=== PATIENT | female | born 1955 | race Caucasian/White ===

== ENCOUNTER 2017-08-05 14:47 | Emergency (ER) | payer MEDICAID ==
[~2017-08-05] VITALS: Ht 165.1 cm; Wt 65.0 kg
[2017-08-05] MEDS ORDERED: METF850T2 PO (14:56)
[2017-08-05 15:02] LABS: GLUCOSE,POINT OF CARE 311 MG/DL (70-110)
[2017-08-05] MEDS ORDERED: HYDROCODONE/ACETAMINOPHEN 5-325 MG TABLET PO ONE (15:15)
[2017-08-05] MEDS ORDERED: MetFORMIN HCL 850 MG TABLET PO ONE (15:15)
[2017-08-05] MEDS ORDERED: LIDOCAINE HCL 1% 10 ML VIAL INJ ONE (16:00)
[2017-08-05] MEDS ORDERED: OxyCODONE HCL/ACETAMINOPHEN 5-325 MG TABLET PO ONE (16:00)
[2017-08-05 16:05] VITALS: BP 148/88
== END 2017-08-05 16:34 | disposition home or self-care (01) ==
LOC: EMS 14:51
DX: S52.502A Unspecified fracture of the lower end of left radius, initial encounter for closed fracture (principal); E11.9 Type 2 diabetes mellitus without complications; R03.0 Elevated blood-pressure reading, without diagnosis of hypertension; Z79.4 Long term (current) use of insulin; W01.0XXA Fall on same level from slipping, tripping and stumbling without subsequent striking against object, initial encounter; Y93.89 Activity, other specified; Y92.89 Other specified places as the place of occurrence of the external cause; Y99.8 Other external cause status
CPT/HCPCS: 25605; 73110; 73130; 82962; 99284; J3490